=== PATIENT | male | born 1990 | race American Indian/Alaskan Native ===

== ENCOUNTER 2017-07-13 10:26 | Emergency (ER) | payer BC ==
[2017-07-13 10:27] VITALS: BMI 29.8
[2017-07-13 10:46] VITALS: BP 129/83; PULSE 86; RESP 16; TEMP 97.7; O2SAT 98
[2017-07-13 11:15] LABS: BASO # 0.03 K/mm3 (0.0-2.0); BASO % 0.3 % (0.0-3.0); EOS # 0.2 (0.0-0.7); EOS % 1.8 % (1.5-5.0); GRAN # 5.71 (1.4-6.5); GRAN % 60.9 % (50.0-68.0); HEMATOCRIT 47.8 % (42.0-52.0); LYMPH % 31.8 % (22.0-35.0); MEAN CELL VOLUME 89.3 fl (80.0-105.0); MEAN CORPUSCULAR HEMOGLOBIN 32.1 pg (25.0-35.0); MEAN PLATELET VOLUME 10.9 fl (7.0-11.0); MONO # 0.5 (0.1-0.6); MONO % 5.2 % (1.0-6.0); RED CELL DISTRIBUTION WIDTH 13.3 % (11.5-14.5); WHITE BLOOD COUNT 9.4 10^3/ul (4.5-11.0)
[2017-07-13 11:27] LABS: ALB/GLOB RATIO 1.5 (1.1-1.8); ALKALINE PHOSPHATASE 68 U/L (38-126); ALT/SGPT 64 U/L (7-56); AST/SGOT 32 U/L (17-59); BILIRUBIN,TOTAL 0.4 mg/dL (0.2-1.3); BLOOD UREA NITROGEN 13 mg/dL (7-21); CALCIUM 10.1 mg/dL (8.4-10.5); CARBON DIOXIDE 23 mmol/L (21-33); CHLORIDE 105 mmol/L (98-107); GFR AFRICAN-AMERICAN > 60; GLUCOSE,RANDOM 109 mg/dL (70-110); MAGNESIUM 1.4 mg/dL (1.7-2.2); SODIUM 140 mmol/L (132-148); TOTAL PROTEIN 7.6 g/dL (5.8-8.3)
[2017-07-13 11:33] LABS: TROPONIN I < 0.01 ng/mL
[2017-07-13 11:45] LABS: INR 1.01 (0.93-1.08)
[2017-07-13 11:46] LABS: PARTIAL THROMBOPLASTIN TIME 30.5 Seconds (25.1-36.5)
--- NOTE | 2017-07-13 13:48 | RAD ---
HISTORY: chest pain COMPARISON: No prior. TECHNIQUE: Chest PA and lateral FINDINGS: LUNGS: No active pulmonary disease. PLEURA: No significant pleural effusion identified. No pneumothorax apparent. CARDIOVASCULAR: Normal. OSSEOUS STRUCTURES: No significant abnormalities. VISUALIZED UPPER ABDOMEN: Normal. OTHER FINDINGS: None. IMPRESSION: No active disease.
--- NOTE | 2017-07-13 15:20 | ED PDOC ---
Arrival/HPI - General Historian: Patient <Suman Owusu A - Last Filed: 07/13/17 15:32> <Melinda Fulton - Last Filed: 07/15/17 18:51> - General Chief Complaint: Chest Pain Time Seen by Provider: 07/13/17 10:41 - History of Present Illness Narrative History of Present Illness (Text): 07/13/17 14:59 26yo male with no PMHx biba for complaint of left sided retrosternal chest pain. Notes that pain started while in a store. States pain associated with lower back pain that radiated to his upper back. He denies diaphoresis, dizziness, SOB, nausea, vomiting, diarrhea, fever, cough, trauma, dizziness, LE edema, calf pain, abdominal pain, any other complaint. (Suman Owusu A) Past Medical History - Provider Review Nursing Documentation Reviewed: Yes - Infectious Disease Hx of Infectious Diseases: None - Tetanus Immunization Tetanus Immunization: Up to Date - Pulmonary Hx Asthma: Yes (Childhood) - Psychiatric Hx Depression: No Hx Emotional Abuse: No Hx Physical Abuse: No Hx Substance Use: No - Surgical History Hx Orthopedic Surgery: Yes (ACL Right leg) Hx Tonsillectomy: Yes - Suicidal Assessment Feels Threatened In Home Enviroment: No <Suman Owusu A - Last Filed: 07/13/17 15:32> Family/Social History - Physician Review Nursing Documentation Reviewed: Yes Family/Social History: Unknown Family HX Smoking Status: Never Smoked Hx Alcohol Use: No Hx Substance Use: No Hx Substance Use Treatment: No <Suman Owusu A - Last Filed: 07/13/17 15:32> Allergies/Home Meds <Suman Owusu A - Last Filed: 07/13/17 15:32> <Melinda Fulton - Last Filed: 07/15/17 18:51> Allergies/Adverse Reactions: Allergies seafood Allergy (Uncoded 07/13/17 10:48) ANAPHYLAXIS Home Medications: Home Meds Medication Instructions Recorded Confirmed No Known Home Med [No Known Home 09/19/13 07/13/17 Med] Review of Systems - Physician Review All systems were reviewed & negative as marked: Yes - Review of Systems Constitutional: Normal Eyes: Normal ENT: Normal Respiratory: Normal Cardiovascular: Chest Pain. absent: Palpitations, Edema, Calf Pain, RAMIREZ, Orthopnea Gastrointestinal: Normal Genitourinary Male: Normal Musculoskeletal: Normal Skin: Normal Neurological: Normal Endocrine: Normal Hemo/Lymphatic: Normal Psychiatric: Normal <DiruHappiness A - Last Filed: 07/13/17 15:32> Physical Exam Vital Signs Reviewed: Yes Temperature: Afebrile Blood Pressure: Normal Pulse: Regular Respiratory Rate: Normal Appearance: Positive for: Well-Appearing, Non-Toxic, Comfortable Pain Distress: None Mental Status: Positive for: Alert and Oriented X 3 - Systems Exam Head: Present: Atraumatic, Normocephalic Pupils: Present: PERRL Extroacular Muscles: Present: EOMI Conjunctiva: Present: Normal Mouth: Present: Moist Mucous Membranes Neck: Present: Normal Range of Motion Respiratory/Chest: Present: Clear to Auscultation, Good Air Exchange. No: Respiratory Distress, Accessory Muscle Use, Wheezes, Decreased Breath Sounds, Rales, Retracting, Rhonchi Cardiovascular: Present: Regular Rate and Rhythm, Normal S1, S2. No: Murmurs Abdomen: Present: Normal Bowel Sounds. No: Tenderness, Distention, Peritoneal Signs Back: Present: Normal Inspection Upper Extremity: Present: Normal Inspection. No: Cyanosis, Edema Lower Extremity: Present: Normal Inspection. No: Edema, CALF TENDERNESS Neurological: Present: GCS=15, CN II-XII Intact, Speech Normal Skin: Present: Warm, Dry, Normal Color. No: Rashes Psychiatric: Present: Alert, Oriented x 3, Normal Insight, Normal Concentration <DiruHappiness A - Last Filed: 07/13/17 15:32> Vital Signs Temp Pulse Resp BP Pulse Ox 07/13/17 10:40 97.7 F 86 16 129/83 98 Medical Decision Making <uHappiness A - Last Filed: 07/13/17 15:32> <Melinda Fulton - Last Filed: 07/15/17 18:51> ED Course and Treatment: 07/13/17 15:21 PT presented for staed history. He was comfortable in ED. States his symptoms resolved in ED. He was hemodynamically stable. First and second CE was negative. CXR NAD EKG NSR No ST changes Result was DW the pt. 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 (UmerHappiness A) - Lab Interpretations Lab Results: 07/13/17 10:55 07/13/17 10:55 Lab Results 07/13/17 14:10: Troponin I < 0.01 07/13/17 10:55: PT 11.1, INR 1.01, APTT 30.5, D-Dimer, Quantitative 210 07/13/17 10:55: Sodium 140, Potassium 4.0, Chloride 105, Carbon Dioxide 23, Anion Gap 16, BUN 13, Creatinine 0.8, Est GFR ( Amer) > 60, Est GFR (Non- Af Amer) > 60, Random Glucose 109, Calcium 10.1, Magnesium 1.4 L, Total Bilirubin 0.4, AST 32, ALT 64 H, Alkaline Phosphatase 68, Lactate Dehydrogenase 442, Total Creatine Kinase 166, Troponin I < 0.01, Total Protein 7.6, Albumin 4.6, Globulin 3.0, Albumin/Globulin Ratio 1.5 07/13/17 10:55: WBC 9.4, RBC 5.35, Hgb 17.2, Hct 47.8, MCV 89.3, MCH 32.1, MCHC 36.0, RDW 13.3, Plt Count 287, MPV 10.9, Gran % 60.9, Lymph % (Auto) 31.8, [place] % (Auto) 5.2, Eos % (Auto) 1.8, Baso % (Auto) 0.3, Gran # 5.71, Lymph # 3.0, [place] # 0.5, Eos # 0.2, Baso # 0.03 - RAD Interpretation Radiology Orders: 07/13/17 10:51 CHEST TWO VIEWS (PA/LAT) [RAD] Stat - Medication Orders Current Medication Orders: Discontinued Medications Aspirin (Aspirin) 325 mg PO STAT STA Stop: 07/13/17 10:52 Last Admin: 07/13/17 11:03 Dose: Famotidine (Pepcid) 20 mg IVP STAT STA Stop: 07/13/17 10:57 Last Admin: 07/13/17 11:08 Dose: 20 mg IVP Administration Document 07/13/17 11:08 [facility] [place] (Rec: 07/13/17 11:08 [id number] Charges for Administration # of IVP Administrations 1 - PA / ELECTRONICS PROCESSOR / Resident Statement MD/DO has reviewed & agrees with the documentation as recorded. <Kirstin,I'Kyori - Last Filed: 07/15/17 18:51> Disposition/Present on Arrival - Present on Arrival Any Indicators Present on Arrival: No History of DVT/PE: No History of Uncontrolled Diabetes: No Urinary Catheter: No History of Decub. Ulcer: No History Surgical Site Infection Following: None - Disposition Have Diagnosis and Disposition been Completed?: Yes Disposition Time: 15:25 Patient Plan: Discharge <Suman Owusu - Last Filed: 07/13/17 15:32> <Melinda Fulton - Last Filed: 07/15/17 18:51> - Disposition Diagnosis: Chest pain Disposition: HOME/ ROUTINE Condition: STABLE Discharge Instructions (ExitCare): Chest Pain (ED) Additional Instructions: Follow up with your Doctor/Fill Manager Avoid any strenuous/sport activity until your cleared by a top printing press operator TRT ED for any new or worsening symptoms Referrals: Amado Fenton, [Primary Care Provider] - Follow up with primary Luis Eduardo Garrison MD [Staff Provider] - Follow up with primary Forms: [employer] (Armenian)
--- NOTE | 2017-07-13 18:16 | CARD ---
APPROVED REPORT EKG Measurement Heart [id number] <Conclusion> Normal sinus rhythm with sinus arrhythmia Normal ECG
== END 2017-07-13 15:55 | disposition home or self-care (01) ==
LOC: ED 10:26
DX: R07.9 Chest pain, unspecified (principal)